=== PATIENT | male | born 1955 | race Caucasian/White ===

== ENCOUNTER 2018-01-28 13:57 | Emergency (ER) | payer OTHER ==
[~2018-01-28] VITALS: Ht 170.2 cm; Wt 110.9 kg
[~2018-01-28 13:57] MED LIST: AMLODIPINE; DOXYCYCLINE 10100 MG PO; ENDOCET 5-3251 EACH PO; FLEXERIL PO; LOTREL 10-20 M1 EACH PO; LOTREL 5-20 MG1 EACH PO; MEDROLDOSEPACK PO; NEURONTIN 300300 M1 PO; NORCO 7.5-3251 EACH PO; NORVASC5 MG PO; PROPRANOLOL 1010 MG PO; VALIUM5 MG PO; XANAX 0.5 MG0.5 M1 PO; ZANAFLEX4 M1 PO; ZANAFLEX4 MG PO
[2018-01-28] MEDS ORDERED: COMPAZINE10 MG PO (14:17)
[2018-01-28 14:43] LABS: ABSOLUTE LYMPHOCYTES 1.8 thou/uL (0.8-5.3); ABSOLUTE MONOCYTES 0.2 thou/uL (0.0-1.2); ABSOLUTE NEUTROPHILS 5.6 thou/uL (1.6-8.1); BASOPHILS 0.4 %; EOSINOPHILS 0.4 %; HEMATOCRIT 46.6 % (42.0-52.0); HEMOGLOBIN 15.5 gm/dL (14.0-18.0); LYMPHOCYTES 23.7 %; MCH 28.7 pg (26.0-34.0); MCHC 33.3 g/dL (28.0-37.0); MONOCYTES 2.6 %; MPV 8.9 fl. (7.2-11.1); NUCLEATED RBCS 0 /100WBC; PLATELET COUNT* 150 thou/uL (150-400); POLYS 72.9 %; RBC 5.42 mil/uL (4.50-6.00); RDW-CV 15.5 % (10.5-14.5); WBC 7.7 thou/uL (4.0-11.0)
[2018-01-28 14:51] LABS: APTT 28.2 Seconds (25.0-31.3); INR 1.2; PROTIME 11.4 Seconds (9.20-11.50)
[2018-01-28 15:23] LABS: ALBUMIN 3.9 g/dL (3.4-5.0); ALKALINE PHOSPHATASE 55 U/L (46-116); BUN 16 mg/dL (7-18); CALCIUM 9.2 mg/dL (8.5-10.1); CHLORIDE 102 mmol/L (98-107); CREATININE 0.8 mg/dL (0.6-1.3); GLUCOSE 166 mg/dL (70-99); NT-PRO BRAIN NAT PEPTIDE 252 pg/mL (<300); POTASSIUM 4.1 mmol/L (3.5-5.1); SGOT 22 U/L (15-37); SGPT 20 U/L (30-65); SODIUM 137 mmol/L (136-145); TOTAL BILIRUBIN 0.5 mg/dL (<0.1-1.0); TOTAL PROTEIN 7.8 g/dL (6.4-8.2)
[2018-01-28 15:41] LABS: ANION GAP 6 mmol/L (7-16); CO2 29 mmol/L (21-32); TROPONIN-I LEVEL <0.06 ng/mL (<0.06)
[2018-01-28 15:53] LABS: URINE BILIRUBIN NEGATIVE (Negative); URINE BLOOD NEGATIVE (Negative); URINE CLARITY CLEAR; URINE COLOR YELLOW; URINE GLUCOSE-RANDOM NEGATIVE (Negative); URINE KETONES NEGATIVE (Negative); URINE LEUKOCYTES-REFLEX NEGATIVE (Negative); URINE NITRITE-REFLEX NEGATIVE (Negative); URINE PROTEIN NEGATIVE (Negative); URINE UROBILINOGEN 0.2 E.U./dl (0.2-1.0)
--- NOTE | 2018-01-28 16:34 | EKG ---
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
[2018-01-28 17:47] VITALS: BP 157/102
== END 2018-01-28 17:57 | disposition home or self-care (01) ==
LOC: M.ERS 13:57
PROVIDERS: Family Medicine
DX: R53.1 Weakness (principal); C18.9 Malignant neoplasm of colon, unspecified; F41.0 Panic disorder [episodic paroxysmal anxiety]; F32.9 Major depressive disorder, single episode, unspecified; M19.90 Unspecified osteoarthritis, unspecified site; I10 Essential (primary) hypertension; E78.5 Hyperlipidemia, unspecified; G47.30 Sleep apnea, unspecified; Z90.89 Acquired absence of other organs; Z87.442 Personal history of urinary calculi; Z88.5 Allergy status to narcotic agent; Z88.8 Allergy status to other drugs, medicaments and biological substances; Z88.6 Allergy status to analgesic agent

== ENCOUNTER 2018-01-29 10:33 | Inpatient (IN) | payer OTHER ==
[~2018-01-29] VITALS: Ht 172.7 cm; Wt 103.0 kg
[~2018-01-29 10:33] MED LIST changes: +COMPAZINE10 MG PO
[2018-01-29 10:39] VITALS: BP 192/99
[2018-01-29 10:59] LABS: ABSOLUTE LYMPHOCYTES 1.6 thou/uL (0.8-5.3); ABSOLUTE MONOCYTES 0.2 thou/uL (0.0-1.2); ABSOLUTE NEUTROPHILS 6.2 thou/uL (1.6-8.1); BASOPHILS 0.5 %; EOSINOPHILS 0.2 %; HEMATOCRIT 44.5 % (42.0-52.0); HEMOGLOBIN 14.8 gm/dL (14.0-18.0); LYMPHOCYTES 20.1 %; MCH 28.7 pg (26.0-34.0); MCHC 33.3 g/dL (28.0-37.0); MCV 86.4 fL (80.0-100.0); NUCLEATED RBCS 0 /100WBC; PLATELET COUNT* 145 thou/uL (150-400); POLYS 77.2 %; RBC 5.16 mil/uL (4.50-6.00); RDW-CV 15.3 % (10.5-14.5); WBC 8.1 thou/uL (4.0-11.0)
[2018-01-29 11:07] LABS: CALCIUM 9.4 mg/dL (8.5-10.1); POTASSIUM 3.9 mmol/L (3.5-5.1)
[2018-01-29 11:08] LABS: INR 1.2; PROTIME 11.4 Seconds (9.20-11.50)
[2018-01-29 11:12] LABS: ALBUMIN 4.1 g/dL (3.4-5.0); TOTAL PROTEIN 8.1 g/dL (6.4-8.2)
[2018-01-29 13:35] VITALS: BP 172/64
[2018-01-29 13:40] VITALS: BP 162/83
--- NOTE | 2018-01-29 13:45 | NUR ---
PATIENT ADMITTED TO ROOM 104 VIA CART FROM ER. PATIENT ASSISTED TO BED FROM CART WITH MODERATE ASSIST. PATIENT A/O, BUT EXTEMELY DROWSY. PATIENT DENIES PAIN. ADMISSION HISTORY AND ASSESSMENT COMPLETED WITH ASSISTANCE FROM PATIENT'S DAUGHTER. IV FLUIDS INFUSING. REPEAT LACTIC ACID BEING DRAWN. BED ALARM ON FOR SAFETY. CALL LIGHT WITHIN REACH. WILL CONTINUE [facility] PLAN OF CARE.
[2018-01-29 14:32] VITALS: BP 159/82
[2018-01-29 16:37] VITALS: BP 152/71
--- NOTE | 2018-01-29 17:43 | NUR ---
PATIENT HAS BEEN MORE ALERT AND AWAKE THIS AFTERNOON, HAS DENIED PAIN. LACTIC ACID TRENDING DOWN AND NOW WNL. PATIENT'S RIGHT CHEST PORT A CATH ACCESSED THIS AFTERNOON WITHOUT ANY DIFFICUTLY, IV FLUIDS AND ZOSYN INFUSING. PATIENT WITH POOR APPETITE, TAKING JELLO WITHOUT DIFFICULTY. VOIDING PER URINAL. PATIENT'S FAMILY AT BEDSIDE THIS AFTERNOON. SPUTUM SAMPLE SENT. ID CONSULT NOTED. FALL PRECAUTIONS IN PLACE. HOURLY ROUNDING COMPLETED. CALL LIGHT WITHIN REACH. WILL CONTINUE WITH PLAN OF CARE.
[2018-01-29 20:00] VITALS: BP 173/86
[2018-01-30] VITALS (15 sets, daily range): BP systolic 117–200; BP diastolic 62–92
--- NOTE | 2018-01-30 01:13 | NUR ---
Assumed care of patient at 1930. He had been coughing and having emesis. IV zofran given at 1999, this didn't help his nausea and vomiting. He was also having some urine incontinence, secondary to the coughing and emesis. BP was elevated, he also had a slight elevation in temp, lungs were coarse. Daughter came to nurses station stating that the patient was still having emesis, Dr Rivera was notified and also that he had a slight temp, and high BP. Medications were not readily available so it took some time to give elevated BP med, additional nausea med. Then at the time that meds were given it was observed that the patient had frothy,blood tinged sputum and he was very weak and lungs were more coarse. Fluids were decreased. Dr Rivera was notified and orders were recieved. Patient was moved to ICU bed 2. Report given to Ingrid. Message left on patient's daughter's voicemail telling about move to ICU.
[2018-01-30 01:21] LABS: BE 5.2 mmol/L (-2 to +3); HCO3 28.5 mmol/L (22.0-26.0); PCO2 37.7 mmHg (35.0-45.0); pH 7.497 (7.340-7.450)
[2018-01-30 01:26] LABS: PO2 44.4 mmHg (75.0-100.0)
[2018-01-30 02:43] LABS: BE 5.5 mmol/L (-2 to +3); HCO3 28.3 mmol/L (22.0-26.0); PCO2 35.6 mmHg (35.0-45.0); pH 7.518 (7.340-7.450)
[2018-01-30 02:49] LABS: PO2 125.6 mmHg (75.0-100.0)
--- NOTE | 2018-01-30 05:06 | NUR ---
[facility]. PTS LUNGS AUDIBLY FLUID OVERLOADED. PT ASSISTED TO ROOM SUCTION ORALLY PT COUGHED AND WE WERE ABLE TO CLEAR A LARGE AMOUT OF SUCRTETIONS PT LUNGS LESS CONGESTED BUT STILL COURSE NEB TREATMENT GIVEN.PT CONTINUES ON 4L NC . PT NSR ON THE MONITOR AND VSS, DENIES ANY COMPLAINTS. WILL CONTINUE PLAN OF CARE.
[2018-01-30 05:29] LABS: HEMATOCRIT 43.2 % (42.0-52.0); HEMOGLOBIN 14.2 gm/dL (14.0-18.0); MCH 28.3 pg (26.0-34.0); MCHC 32.8 g/dL (28.0-37.0); MCV 86.2 fL (80.0-100.0); MPV 8.7 fl. (7.2-11.1); RBC 5.01 mil/uL (4.50-6.00); RDW-CV 15.3 % (10.5-14.5); WBC 12.6 thou/uL (4.0-11.0)
[2018-01-30 05:48] LABS: ALBUMIN 3.9 g/dL (3.4-5.0); ALKALINE PHOSPHATASE 43 U/L (46-116); ANION GAP 8 mmol/L (7-16); BUN 15 mg/dL (7-18); CALCIUM 8.4 mg/dL (8.5-10.1); CHLORIDE 107 mmol/L (98-107); CO2 29 mmol/L (21-32); CREATININE 1.1 mg/dL (0.6-1.3); GLUCOSE 189 mg/dL (70-99); MAGNESIUM 1.8 mg/dL (1.8-2.4); POTASSIUM 3.2 mmol/L (3.5-5.1); SGOT 27 U/L (15-37); SGPT 21 U/L (30-65); SODIUM 144 mmol/L (136-145); TOTAL BILIRUBIN 1.1 mg/dL (<0.1-1.0); TOTAL PROTEIN 7.2 g/dL (6.4-8.2); TROPONIN-I LEVEL <0.06 ng/mL (<0.06)
--- NOTE | 2018-01-30 08:24 | NUR ---
LEVOPHED GTT TITRATED OFF AT 0824
--- NOTE | 2018-01-30 09:35 | NUR ---
PRN HYDRALAZINE GIVEN FOR ELEVATED BLOOD PRESSURE, AFTER 30 MINUTES, PRESSURE REMAINS HIGH WITH SYSTOLIC OF 207. DR WORTHINGTON NOTIFIED. AWAITING ORDERS.
--- NOTE | 2018-01-30 09:54 | NUR ---
PATIENT NOT ALERT ENOUGH TO EAT BREAKFAST
--- NOTE | 2018-01-30 14:09 | EKG ---
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
[2018-01-30] MEDS ORDERED: LASIX 20 MG TAB20 MG PO (15:41)
[2018-01-30] MEDS ORDERED: KLOR-CON 1010 MEQ PO (15:41)
[2018-01-30 17:20] LABS: URINE BILIRUBIN NEGATIVE (Negative); URINE BLOOD 2+ (Negative); URINE CLARITY CLEAR; URINE COLOR YELLOW; URINE GLUCOSE-RANDOM NEGATIVE (Negative); URINE KETONES NEGATIVE (Negative); URINE LEUKOCYTES-REFLEX NEGATIVE (Negative); URINE NITRITE-REFLEX NEGATIVE (Negative); URINE PROTEIN 2+ (Negative); URINE SPECIFIC GRAVITY 1.015 (1.005-1.030); URINE UROBILINOGEN 0.2 E.U./dl (0.2-1.0)
[2018-01-30 17:36] LABS: MUCUS None Seen strn/LPF (None Seen); SQUAMOUS 0-3 Few /LPF (0-3)
[2018-01-30 17:39] LABS: CASTS None Seen /LPF (None Seen); CRYSTALS None Seen /LPF (None Seen); URINE WBC-REFLEX 0-5 Rare /HPF (0-5)
[2018-01-30 17:40] LABS: BACTERIA-REFLEX 1-9 Few /HPF (None Seen)
[2018-01-30 17:43] LABS: AMP/METHAMP Negative (Negative); BARBITURATES Negative (Negative); BENZODIAZEPINES POSITIVE (Negative); COCAINE Negative (Negative); METHADONE Negative (Negative); OPIATES POSITIVE (Negative); PCP Negative (Negative); THC POSITIVE (Negative)
--- NOTE | 2018-01-30 18:29 | NUR ---
PATIENT SOMEWHAT PROGRESSING TOWARDS GOALS. REMAINS AT BASELINE COGNITION, ORIENTED TO PERSON. ORIENTED TO TIME AND PLACE INTERMITTENTLY. TRACING NSR ON BUTCHER SCULLION. CURRENTLY ON 2L NC, SAT 94% ON MONITOR. REMAINS COARSE WITH COPIOUS SECRETIONS. NPO AT THIS TIME FOR ASPIRATION CONCERNS. ST EVALUATION AND TREATMENT ORDERED PER DR WORTHINGTON. IMPULSIVE AT TIMES, BED ALARM SET OFF X2, PULLING AT LINES. PHYSICIAN BUYER TOBACCO HEAD PAGED, ORDERS FOR SITTER. DAUGHTER PRESENT FOR DAYSHIFT TODAY, BUT SITTER NEEDED TONIGHT. DELIVERY MGR NOTIFIED. CT ABDOMEN COMPLETED TODAY, RESULTS SENT TO DR WORTHINGTON. STARTED ON IV PANTOPRAZOLE.
--- NOTE | 2018-01-30 20:24 | NUR ---
PATIENT TRANSFERED TO ROOM 232 AT 1755.
[2018-01-31] VITALS: BP 159/79
[2018-01-31 04:00] VITALS: BP 171/84
[2018-01-31 05:23] LABS: ABSOLUTE LYMPHOCYTES 2.6 thou/uL (0.8-5.3); ABSOLUTE MONOCYTES 0.4 thou/uL (0.0-1.2); ABSOLUTE NEUTROPHILS 8.2 thou/uL (1.6-8.1); BASOPHILS 0.3 %; EOSINOPHILS 0.1 %; HEMATOCRIT 41.1 % (42.0-52.0); HEMOGLOBIN 13.4 gm/dL (14.0-18.0); LYMPHOCYTES 23.1 %; MCH 28.8 pg (26.0-34.0); MCHC 32.6 g/dL (28.0-37.0); MCV 88.3 fL (80.0-100.0); MONOCYTES 3.8 %; MPV 9.4 fl. (7.2-11.1); NUCLEATED RBCS 0 /100WBC; PLATELET COUNT* 113 thou/uL (150-400); POLYS 72.7 %; RBC 4.66 mil/uL (4.50-6.00); RDW-CV 15.5 % (10.5-14.5); WBC 11.3 thou/uL (4.0-11.0)
[2018-01-31 05:52] LABS: ALBUMIN 3.4 g/dL (3.4-5.0); CALCIUM 8.5 mg/dL (8.5-10.1); CREATININE 0.9 mg/dL (0.6-1.3); MAGNESIUM 1.9 mg/dL (1.8-2.4); POTASSIUM 3.6 mmol/L (3.5-5.1); TOTAL BILIRUBIN 0.7 mg/dL (<0.1-1.0); TOTAL PROTEIN 6.4 g/dL (6.4-8.2)
[2018-01-31 07:45] VITALS: BP 171/81
--- NOTE | 2018-01-31 07:56 | NUR ---
Transferred from ICU at 2020 last evening. Loading Machine Operator said he was cleared to be on med-surg floor as long as he had a sitter and had on continuous pulse ox. He has had one on one sitter and continuous pulse ox. She has coarse lungs, he has a cough and sounds gurgly in his throat. Suction done with [place] as needed. He does get restless and confused and has been seeing things at times. He did get upset with his sitter and said she was lying. He did try to get out of bed. He continues to have hiccups but they do improve with compazine and also ativan. He has been repositioned in the bed. He has slept well.
[2018-01-31 12:00] VITALS: BP 168/82
--- NOTE | 2018-01-31 15:48 | NUR ---
I have reviewed the documentation by ROSA ANDERSON from TODAY to 01/31/18 and I concur with it. BENJAMIN CLARK
[2018-01-31 16:46] VITALS: BP 186/87
--- NOTE | 2018-01-31 18:21 | NUR ---
ALERT AND ORIENTED X4 AT TIMES, BUT ALSO CONFUSED AND HALLUCINATING AT TIMES. SITTER AT THE BEDSIDE THROUGHOUT SHIFT. PORT A CATH IS PATENT AND INFUSING. RIGHT PERIPHERAL IV IS PATENT AND INFUSING ANTIBIOTICS AT THIS TIME. BLOOD PRESSURE HAS BEEN RUNNING HIGH THIS SHIFT, IV BLOOD PRESSURE MEDICATION GIVEN. CALL LIGHT IS WITHIN REACH. CALL LIGHT IS WITHIN REACH. NURSING WILL CONTINUE TO MONITOR.
[2018-02-01] VITALS: BP 167/83
[2018-02-01 04:00] VITALS: BP 181/86
[2018-02-01 06:11] LABS: HEMATOCRIT 40.1 % (42.0-52.0); HEMOGLOBIN 13.2 gm/dL (14.0-18.0); MCH 28.8 pg (26.0-34.0); MCHC 32.8 g/dL (28.0-37.0); MCV 87.8 fL (80.0-100.0); MPV 8.9 fl. (7.2-11.1); RBC 4.57 mil/uL (4.50-6.00); RDW-CV 15.2 % (10.5-14.5)
[2018-02-01 06:38] LABS: ALBUMIN 3.1 g/dL (3.4-5.0); CALCIUM 8.1 mg/dL (8.5-10.1); CREATININE 0.9 mg/dL (0.6-1.3); MAGNESIUM 2.1 mg/dL (1.8-2.4); POTASSIUM 3.5 mmol/L (3.5-5.1); TOTAL BILIRUBIN 0.5 mg/dL (<0.1-1.0); TOTAL PROTEIN 6.5 g/dL (6.4-8.2)
--- NOTE | 2018-02-01 07:54 | NUR ---
PATIENT REMAINS MAINLY CONFUSED THROUGHOUT SHIFT. VITAL SIGNS STABLE ON ROOM AIR. IV PATENT IN THE LEFT HAND AND PORTACATH IN THE RIGHT CHEST PATENT AND INFUSING PER ORDERS. PATIENT BECAME COMBATIVE EARLY THIS AM. PHYSICIAN WAS CONTACTED AND ORDERS RECIEVED. DENIED PAIN OR NAUSEA. REPOSITIONING SELF AND DECLINED STAFF TO ASSIST. RESTLESS FOR MOST OF THE NIGHT. MAINTAINED NPO STATUS. HOURLY ROUNDING COMPLETE. BED ALARM IN PLACE. ONE TO ONE OBSERVATION THROUGHOUT NIGHT. CALL LIGHT WITHIN REACH. NURSING WILL CONTINUE TO MONITOR.
[2018-02-01 08:00] VITALS: BP 185/87
[2018-02-01 08:22] LABS: BE -0.9 mmol/L (-2 to +3); HCO3 22.2 mmol/L (22.0-26.0); PCO2 32.5 mmHg (35.0-45.0); PO2 76.5 mmHg (75.0-100.0); pH 7.453 (7.340-7.450)
--- NOTE | 2018-02-01 09:57 | NUR ---
DESHAUN WILLIS REVIEWED AND AGREES WITH STUDENTS CHARTING.
--- NOTE | 2018-02-01 15:00 | NUR ---
PT.LESS CONFUSED TODAY,PER NURSING. UNABLE TO SEE,HOWEVER, HE IS OFF THE FLOOR FOR PROCEDURE. WILL SEE IN AM.
--- NOTE | 2018-02-01 18:51 | NUR ---
ALERT AND ORIENTED X4 AT TIMES AND VERY DROWZY AND CONFUSED AT TIMES. UP WITH ASSIST X1-2 IN ROOM. CENTRAL LINE IS PATENT AND INFUSING. PERIPHERAL LINE IS PATENT AND INFUSING ANTIBIOTIC AT THIS TIME. SITTER AT THE BEDSIDE THROUGHOUT SHIFT. CURRENTLY NPO AND RECEIVING IV NUTRITION. VSS ON ROOM AIR. HOURLY ROUNDS HAVE BEEN MAINTAINED THROUGHOUT SHIFT. CALL LIGHT IS WITHIN REACH. NURSING WILL CONTINUE TO MONTIOR.
[2018-02-02] VITALS: BP 147/73
[2018-02-02 04:39] VITALS: BP 170/82
--- NOTE | 2018-02-02 05:54 | NUR ---
PT SLEPT GOOD THROUGH THE NIGHT. ASSESSMENT COMPLETE. SITTER AT BEDSIDE. PT IS FALL RISK, BED ALARM ON. NPO AT THIS TIME FOR SPEECH EVAL. PT HAS IV FLUIDS INFUSING. PT DENIES PAIN. NOHEMI SATS ON ROOM AIR. PT IS UP STANDBY ASSIST. GERARDO IN PLACE. SEE ASSESSMENT AND VITALS FOR OTHER DETAILS. CALL LIGHT WITHIN REACH, WILL CONTINUE PLAN OF CARE
[2018-02-02 08:17] VITALS: BP 141/73
--- NOTE | 2018-02-02 10:38 | NUR ---
ASSUMED CARES OF PT AT 0700. PT IN BED ASLEEP/SNORING. BED IN LOW LOCKED POSITION, CALL BUTTON AND PERSONAL ITEMS IN PT REACH. PT HAS 1/ SITTER FOR AGITATION/CONFUSION/DIFFICULT TO AROUSE. PT A&O X3 THIS MORNING ROUNDS, HRRR PER AUSCULTATION, VSS ON RA, AFEBRILE, NO PAIN REPORTED. GERARDO PATENT WITH CLEAR YELLOW URINE VISIBLE. NO HICCUPS THIS MORNING ROUNDS. PT UP WITH MOD ASSIST WITH OCCUPATIONAL THERAPY. LEFT HAND IV PATENT WITH FLUIDS INFUSING/ABT. RIGHT POWER PORT ACCESSED WITH PROCALAMINE INFUSING. PT PRESENTLY NPO FOR SPEECH EVALUATION FOR POSSIBLE ASPIRATION RISKS. PT COOPERATIVE THIS MORNING ACTIVITIES, OFTEN DROWSY AND HEAVY SLEEPING WITH SNORING. HOURLY ROUNDING CONTINUES, WILL CONTINUE TO MONITOR PT STATUS AND PROGRESS.
--- NOTE | 2018-02-02 13:29 | CON ---
[address] [address] CONSULTATION Name: ANN-MARIE CHANEY Room: [address] IN M.R.#: [id number] Admission: 01/29/18 Attend Phys: Kendall Rivera, Discharge: Date of : 55 Report #: [id number] THIS REPORT FOR: //name// CC: Michele Emeterio Kendall Rivera DATE OF SERVICE: 01/30/2018 INFECTIOUS DISEASE CONSULTATION ATTENDING PHYSICIAN: Kendall Rivera MD REASON FOR CONSULTATION: Fever, altered mental status. HISTORY OF PRESENT ILLNESS: A 62-year-old white man initially evaluated at [facility] on January 28, the patient is advised admission, he turns this down. Returns to the Emergency Room the next day and he is admitted. He is admitted to the Orthopedic floor initially and subsequently transferred to the ICU with altered mental status, hiccupping. The patient appears to be able to follow simple commands, but unable to give any information. He appears to be encephalopathic. The patient apparently is receiving chemotherapy at [facility] for colon cancer. He has a Port-A-Cath for this. All this information is gathered from the review of records. The patient unable to give me any information. PAST MEDICAL AND SURGICAL HISTORY: Knee operations in 1970s, vasectomy and vasectomy reversal, anxiety attacks and depression, back problems, tonsillectomy, right knee surgery for saw accident, kidney stones, recently diagnosed to have colon cancer and apparently have had segmental colon resection. DRUG ALLERGIES: CODEINE, BENADRYL, FLUOXETINE, NAPROXEN. MEDICATIONS: The patient is currently on treatment with Levaquin 750 mg IV daily, Zosyn 3.375 grams IV every 8 hours and vancomycin 1 gram IV single dose. He is also receiving hydralazine 10 mg IV p.r.n., sodium chloride 50 mL infusions q. 6 hours, p.r.n. ondansetron, p.r.n. acetaminophen. SOCIAL HISTORY: Unable to obtain. See [facility]. FAMILY HISTORY: Unable to obtain. See [facility] records. REVIEW OF SYSTEMS: Unable to obtain. PHYSICAL EXAMINATION: GENERAL: Well-developed man continuously hiccupping with eyes closed, [place] [address] CONSULTATION Name: ANN-MARIE CHANEY Darius Room: [address]#: [id number] Admission: 01/29/18 Attend Phys: Kendall Rivera, Discharge: Date of : 55 Report #: [id number] to follow commands. VITAL SIGNS: Temperature maximum since admission at 100.1, pulse 85-139, respirations 16-20, BP 173/86. HEENMT: Head normocephalic, atraumatic. Pupils equal and reactive. Conjunctivae normal. Mouth edentulous on the maxilla, few incisors on the jaw. NECK: Supple, no thyromegaly. LUNGS: Actually clear to auscultation though he appears to have problems handle upper airway secretions. HEART: S1, S2. No gallop or murmur. CHEST: Revealed right-sided infraclavicular Port-A-Cath. ABDOMEN: Revealed recent infraumbilical laparotomy scar, well healed. The abdomen is soft, no masses or megaly. GENITALIA: Pulido catheter in place. RECTAL EXAMINATION: Deferred. EXTREMITIES: No clubbing or cyanosis. NEUROLOGIC: The patient is encephalopathic, appears to have normal cranial nerves and motor exam. LABORATORY DATA: Sodium 139, potassium 3.9, BUN 15, creatinine 1, glucose 178, albumin 3.9, 4.1. Lactic acid normal. Protime normal. WBC on the date of admission 8100, hemoglobin 14.8 g/dL, platelets 145,000 with white blood cell count differential reveals 77% segmented neutrophils. Urinalysis on January 28 normal. ABGs on January 30, pH 7.49, pCO2 of 37, pO2 of 44, bicarbonate 28.5, this is on 2 liters oxygen nasal cannula. A repeat set of gases later on revealed pH 7.51, pCO2 of 35, pO2 of 125, bicarbonate 28.3, O2 saturation 97%, these set of gases on 6 liters oxygen nasal cannula. MICROBIOLOGY DATA: That has included blood cultures obtained on January 28 and January 29 all pending and negative. RADIOLOGY EVALUATION: On January 28, CT scan of the brain revealed moderate cerebral atrophy, no acute intracranial process, no metastases. CT chest PE protocol negative for pulmonary embolism, clear lungs. Chest x-ray on the , official report pending. The chest x-ray revealed some cardiomegaly and what appears to be left pleural effusion. ASSESSMENT: 1. Question left lower lobe pneumonia with pleural effusion. 2. Hypoxemia. 3. Low grade fever. 4. History of recent colon cancer, on chemotherapy (unknown agents). 5. Hypertension. SUGGESTIONS: Recommend treating the patient as for possible healthcare-associated pneumonia -- aspiration pneumonia with combination of Levaquin, Zosyn and vancomycin. We will add vancomycin [place] [address] CONSULTATION Name: RITUANN-MARIE Room: [address] [facility] IN M.R.#: [id number] Admission: 01/29/18 Attend Phys: Kendall Rivera, Discharge: Date of : 55 Report #: [id number] Rivera, thank you for requesting my suggestions. <ELECTRONICALLY SIGNED> By: Marco Uriarte MD 02/02/18 1329 0428 [id number] Uriarte MD /nt
[2018-02-02 17:30] VITALS: BP 162/91
--- NOTE | 2018-02-02 19:53 | NUR ---
REPORT TO SIGNAL WIRER FOR CONTINUED CARES. PT IN BED SNORING WITH ONE ON ONE SITTER. VS REMAIN STABLE, FLUIDS CONTINUE TO INFUSE, SEE MAR. ABT THERAPY DELAYED R/T OFF UNIT FOR PROCEDURE AND TRYING TO GET CAUGHT UP ON FLUIDS ONCE PT RETURNED TO FLOOR. HOURLY ROUNDING COMPLETED.
--- NOTE | 2018-02-02 19:58 | NUR ---
PT BECAME AGITATED AND ANGRY AND REFUSED TO ALLOW DR. AMIN TO PERFORM LUMBAR PUNCTURE. PT THREATENED TO FIGHT TOOTH AND NAIL TO NOT LET ANYONE COME ANYWHERE NEAR HIM WITH A NEEDLE TO HIS BACK. DAUGHTER AT SIDE TRYING TO CONVINCE PT TO GO THROUGH WITH PROCEDURE. PT REMAINED ANGRY AND AGITATED. CALL OUT TO DR. WHATLEY WHO WANTED TO CONTACT DR. ELLIS. PT HAD BEEN TRANSPORTED BACK TO ROOM BY THIS TIME AND REMAINED AGITATED AND AGAINST NEEDLES BEING PLACED IN HIS BACK.
[2018-02-02 23:53] VITALS: BP 159/96
[2018-02-03 06:32] LABS: HEMATOCRIT 41.7 % (42.0-52.0); HEMOGLOBIN 13.9 gm/dL (14.0-18.0); MCHC 33.2 g/dL (28.0-37.0); MCV 87.5 fL (80.0-100.0); MPV 8.4 fl. (7.2-11.1); RBC 4.77 mil/uL (4.50-6.00); RDW-CV 15.8 % (10.5-14.5); WBC 7.5 thou/uL (4.0-11.0)
--- NOTE | 2018-02-03 06:43 | NUR ---
PATIENT SLEPT PART OF THE NIGHT. TPN WAS STARTED AT 40 ML/HR. IV ANTIBIOTICS WERE GIVEN ORDERED. GERARDO REMAINS TO DEPENDENT DRAIN. PATIENT WAS GIVEN ZOFRAN ONCE FOR NAUSEA AND HICCUPS WITH GOOD RELIEF. PATIENT REMAINS 1:1 SITTER BUT HAS REMAINED CALM AND PLEASANT THIS SHIFT. WILL CONTINUE TO MONITOR.
[2018-02-03 06:48] LABS: CALCIUM 8.1 mg/dL (8.5-10.1); CREATININE 0.8 mg/dL (0.6-1.3); MAGNESIUM 2.2 mg/dL (1.8-2.4); PHOSPHORUS* 3.5 mg/dL (2.5-4.9); POTASSIUM 3.8 mmol/L (3.5-5.1); TOTAL BILIRUBIN 0.6 mg/dL (<0.1-1.0); TOTAL PROTEIN 6.1 g/dL (6.4-8.2)
[2018-02-03 10:00] VITALS: BP 154/88
[2018-02-03 11:31] LABS: CSF CLARITY CLEAR; CSF COLOR COLORLESS; CSF RBC 2 /mm3; CSF WBC 0 /mm3 (0-10); VOLUME 20 ml
[2018-02-03 11:32] LABS: CSF GLUCOSE 77 mg/dl (40-70)
[2018-02-03 16:00] VITALS: BP 135/93
--- NOTE | 2018-02-03 16:11 | NUR ---
PT.NAPPING,AROUSES EASILY. HAS FLAT AFFECT. HE TALKS ABOUT CARS FREQUENTLY. 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 HE SAID HE LIVES ALONE. HE RENTS HIS BOTTOM PART OF HIS HOUSE OUT TO A FRIEND,FRANCISCA. HE CAN HELP HIM AT DISCHARGE. UNSURE IF PT.ANSWERING QUESTIONS APPROPRIATELY. WILL CONFIRM WITH FAMILY. HE SAID HE HAD A HEAD ON ACCIDENT WITH TBI ON . HE SAID GEORGETTE WAS HIS DAUGHTER. SHE LIVES A COUPLE OF BLOCKS AWAY. HIS NEXT DOOR NEIGHBOR IS MELBA. HE GIVES HIM RIDES. HAD LP TODAY. TOLD HIM IT LOOKED GOOD,PER PT. SISTER IN LAW,LUCY IN TO VISIT. WILL CALL HIS DAUGHTER,GEORGETTE TO VERIFY ABOVE INFORMATION.
--- NOTE | 2018-02-03 17:38 | NUR ---
PATIENT HAS BEEN VERY ALERT MOST OF THE DAY TODAY, CONFUSED AT TIMES. UP IN THE CHAIR MOST OF THE AFTERNOON, HAS TOLERATED REGULAR DIET FOR DINNER WITH NO COMPLAINTS SO FAR. SOME COMPLAINTS OF PAIN AFTER LUMBAR PUNCTURE THIS MORNING, CONTROLLED WITH TYLENOL. HAS HAD VISITORS THIS AFTERNOON. TWO IV'S STARTED TODAY FOR ANTIBIOTICS. CALL LIGHT IS IN REACH, CHAIR ALARM IS IN PLACE, WILL CONTINUE TO MONITOR.
[2018-02-03 20:15] VITALS: BP 154/104
[2018-02-03 23:50] VITALS: BP 151/84
[2018-02-04 04:00] VITALS: BP 147/91
--- NOTE | 2018-02-04 05:56 | NUR ---
PATIENT REMAINS ORIENTED TO SELF AND TIME. CONFUSED AND FORGETFUL AT TIMES. REMAINS UNDER ONE ON ONE OBSERVATION. BLOOD PRESSURE HAS BEEN ELEVATED SLIGHTLY BUT PATIENT HAS DECLINED ALL PRN AND SCHEDULED BLOOD PRESSURE MEDICATIONS WELL OTHER ORDERED MEDICATIONS SEVERAL TIMES. TWO IV'S PATENT IN THE LEFT FOREARM SALINE LOCKED. PORTACATH ACCESSED AND RUNNING TPN ORDERED. ACCU CHECKS COMPLETE AND CHARTED. PATIENT HAS BEEN DROWSY THIS AM. TOLERATING DIET THROUGOUT SHIFT. REPOSITIONING SELF IN BED. HOURLY ROUNDING COMPLETE. CALL LIGHT WITHIN REACH. BED ALARM IN PLACE. NURSING WILL CONTINUE TO MONITOR.
[2018-02-04 06:38] LABS: POTASSIUM 3.6 mmol/L (3.5-5.1)
[2018-02-04 08:00] VITALS: BP 152/90
[2018-02-04 16:00] VITALS: BP 171/114
--- NOTE | 2018-02-04 17:29 | NUR ---
SPOKE WITH PT.AND DAUGHTER GEORGETTE, IN ROOM, BRIEFLY, PT.WAS GOING FOR A TEST. GEORGETTE LEFT WHEN PT WENT TO RADIOLOGY. UNSURE OF DC DATE. PT.STILL ON TPN. WAS ABLE TO EAT AOBUT 50% OF LUNCH. WILL NEED HOME HEALTH AT DISCHARGE AND CLOSE FAMILY SUPERVISION DUE TO COGNITION.
[2018-02-04 20:30] VITALS: BP 160/88
[2018-02-04 23:49] VITALS: BP 164/90
[2018-02-05 03:30] VITALS: BP 150/86
[2018-02-05 04:52] LABS: POTASSIUM 3.6 mmol/L (3.5-5.1)
--- NOTE | 2018-02-05 06:09 | NUR ---
ALERT AND ORIENTED TO PERSON AND PLACE. CONFUSED AND FORGETFUL AT TIMES. BARRIUM SWALLOW RESULTS CALLED TO . CONTINUES TO HAVE FINE RASH ON TORSO, DR AWARE. PATIENT STATED PO PAIN MEDICATION WAS HELPFUL FOR GENERALIZED BODY PAIN. NO C/O N/V. GERARDO CATHETER PATENT WITH CLEAR YELLOW URINE. REMAINS ON NECTAR THICKEN LIQUIDS. HAS PATENT VALENTINO CATHETER. BLOOD PRESSURE HAS BEEN HIGH BUT HAS BEEN BETTER THIS SHIFT. HAS REFUSED IV BLOOD PRESSURE MEDICATION. CALL LIGHT WTIHIN REACH.
[2018-02-05 08:00] VITALS: BP 141/100
[2018-02-05 16:00] VITALS: BP 111/70
--- NOTE | 2018-02-05 18:07 | NUR ---
ALERT AND ORIENTED X4. FORGETFUL AT TIMES. UP WITH ASSIST X1 WITH WALKER AND GAIT BELT. PORTACATH IN RIGHT CHEST IS PATENT AND SALINE LOCKED AT THIS TIME. LEFT FOREARM IV X2 DC'D THIS AFTERNOON. ADVANCED TO THIN LIQUIDS TODAY PER SPEECH THERAPY. WALKED IN HALLWAYS WITH THERAPY AND NURSING THIS SHIFT. TOLERATING REGULAR DIET AND THIN LIQUIDS. ASPIRATION PRECAUTIONS MAINTAINED. VSS ON ROOM AIR. HOURLY ROUNDS HAVE BEEN MAINTAINED THROUGHOUT SHIFT. CALL LIGHT IS WITHIN REACH. NURSING WILL CONTINUE TO MONITOR.
[2018-02-05 20:30] VITALS: BP 142/84
--- NOTE | 2018-02-06 05:02 | NUR ---
PT HAD CONFUSION LAST NIGHT AND WAKING FROM A NAP, WANTED TO LEAVE AND CONFUSED ABOUT LOCATION/SITUATION, AFTER AWHILE PT WAS ORIENTED, PT GOT UP AROUND ROOM AND OUT TO LEMUS WITH STAFF AND CANE WITH STANDBY ASSISTANCE. PT HAD PAIN MED AND VALIUM LAST NIGHT. BED AND CHAIR ALARMS IN PLACE. PT WAS THEN PLEASANT THE REST OF THE NIGHT. PORT A CATH SALINE LOCKED, CALL LIGHT IN REACH, BED ALARM ON FOR SAFETY, WILL CONTINUE TO MONITOR
[2018-02-06 07:55] VITALS: BP 136/88
[2018-02-06] MEDS ORDERED: PROTONIX40 M1 PO (09:13)
[2018-02-06 12:04] VITALS: BP 136/88
--- NOTE | 2018-02-06 13:49 | NUR ---
PATIENT A&OX4, ROOM AIR, RIGHT CHEST PORTICATH, DEACCESSED AND HEPARIN LOCKED. UP STAND BY, STEADY GAIT. NO C/O PAIN/N/V. PATIENT DISCHARGED TODAY, REVIEWED PAPERWORK, VERBALIZES UNDERSTANDING. ALL CONCERNS AND QUESTIONS ANSWERED. WENT OVER DISCHARGED PAPERWORK WITH FAMILY MEMBER. NO OTHER CONCERNS AT THIS TIME. PATIENT LEFT UNIT AT 1348 VIA W/C WITH NURSING STAFF AND FAMILY MEMBER. ALL BELONGIGNS TAKEN WITH PATIENT, NOTHING LEFT BEHIND. APPROPRAITE AND COOPORATIVE WITH CARE.
[2018-02-08 09:09] LABS: CSF VDRL Non Reactive (Non Rea:<1:1)
--- NOTE | 2018-02-08 16:59 | CON ---
[address] [address] CONSULTATION Name: ANN-MARIE CHANEY Room: [address] IN M.R.#: [id number] Admission: 01/29/18 Attend Phys: Kendall Rivera, Discharge: 02/06/18 Date of : 55 Report #: [id number] THIS REPORT FOR: //name// CC: Michele Rivera DATE OF SERVICE: 01/31/2018 ADDENDUM I have personally seen and examined the patient and reviewed labs and imaging. The patient with history of recurrent colon cancer who is on chemotherapy. He has mental status changes, pneumonia and dysphagia. CT of abdomen revealed thickened distal esophagus. The patient also has persistent hiccups. We will consider EGD once his mental status back to baseline. Meanwhile, we will recommend medication to help with the hiccups. We will continue to monitor the patient as we follow up with his records from the past. <ELECTRONICALLY SIGNED> By: Mckayla Alfredo MD 02/08/18 1659 1522 2005Mckayla Alfredo MD /nt
--- NOTE | 2018-02-08 16:59 | CON ---
[address] [address] CONSULTATION Name: ANN-MARIE CHANEY Room: [address] IN .R.#: [id number] Admission: 01/29/18 Attend Phys: Kendall Rivera, Discharge: 02/06/18 Date of : 55 Report #: [id number] THIS REPORT FOR: //name// CC: Michele Rivera DICTATED BY: Mansi ROTH DATE OF SERVICE: 01/31/2018 Please note at the time of this dictation, the patient was seen and physically examined by myself. REASON FOR CONSULTATION: Dysphagia. HISTORY OF PRESENT ILLNESS: This 62-year-old male presented to the Emergency Room with worsening of weakness and fatigue, which has been onset for the last 2 weeks. He also was having some nausea and vomiting that was noted yesterday and he really has not been eating or drinking much of anything. He states he had been taking some antinausea medicine without any relief. He does state that for the last 2 weeks, he has had difficulty in swallowing, mainly with solids and what I can get from him. He states he has had upper and lower scopes done here within the last year when his colon cancer reappeared. We will attempt to get those records from recent endoscopy studies. The patient thinks it was done at [facility]. He states his weight has been fairly stable. His bowels move daily. He does not have any abdominal pain that he is complaining of. Currently, the patient did answer most of my questions appropriately, but to place and time, he was confused. Most of his questions that were asked were from his remote past. ALLERGIES: CODEINE, NAPROXEN, FLUOXETINE AND DIPHENHYDRAMINE. MEDICATIONS: From home include Zanaflex, Endocet, Valium, Lotrel, Inderal, Neurontin, and Compazine. PAST MEDICAL HISTORY: Anxiety, panic attacks, depression, arthritis, hypertension, hyperlipidemia, sleep apnea, history of colon cancer. PAST SURGICAL HISTORY: Knee operations, vasectomy, left ankle fracture, left knee arthroscopic surgery, right knee surgery and colon resection. He does have a history of sleep apnea and uses BiPAP at night. FAMILY HISTORY: Noncontributory. SOCIAL HISTORY: [place] [address] CONSULTATION Name: ANN-MARIE CHANEY Room: [address]#: [id number] Admission: 01/29/18 Attend Phys: Kendall Rivera, Discharge: 02/06/18 Date of : 55 Report #: [id number] REVIEW OF SYSTEMS: Twelve-point review of systems is essentially negative except what is mentioned in the HPI. PHYSICAL EXAMINATION: VITAL SIGNS: Temperature 36.8, pulse 66, respirations 16, blood pressure 171/81. HEART: Regular rate and rhythm. LUNGS: Diminished, but clear. ABDOMEN: Soft, positive bowel sounds in all 4 quadrants with no masses or tenderness noted. NEUROLOGIC: The patient was able to answer questions appropriately most of the time. His place and timing was somewhat off. He kept his eyes closed throughout the entire conversation and has significant hiccups that were noted. LABORATORY DATA: Hemoglobin 13.4, hematocrit 41.1, white count is 11.3, platelets 113. Sodium 145, potassium 3.6, chloride 111, CO2 27, BUN is 17, creatinine 0.9, GFR is 86, glucose is 135. CT of the abdomen and pelvis showed thickening of the distal esophagus as well as a history showing fatty liver. IMPRESSION: 1. Dysphagia. 2. CT abnormal thickening of the distal esophagus. 3. Hiccups last 2 days. 4. History of colon cancer in 2012 with reoccurrence and currently on chemo last treatment 1 week ago. 5. Thrombocytopenia, likely related to chemo. 6. Pneumo. 7. Mental status changes. PLAN: 1. Consider a barium swallow once his hiccups have improved. 2. Could consider Thorazine, but until his mental status improves, do not want to worsen that effect. 3. He will need an EGD prior to discharge. 4. Obtain records from [facility] along with path. Thank you for allowing us to participate in this patient's care. Please do not hesitate to call with any questions in regard to this consult. ADDENDUM I have personally seen and examined the patient and reviewed labs and imaging. The patient with history of recurrent colon cancer who is on chemotherapy. He has mental status changes, pneumonia and dysphagia. CT of abdomen revealed thickened distal esophagus. The patient also has persistent hiccups. We will [address] [address] CONSULTATION Name: ANN-MARIE CHANEY Room: [address] [place] ..#: [id number] Admission: 01/29/18 Attend Phys: Kendall Rivera, Discharge: 02/06/18 Date of : 55 Report #: [id number] consider EGD once his mental status back to baseline. Meanwhile, we will recommend medication to help with the hiccups. We will continue to monitor the patient as we follow up with his records from the past. <ELECTRONICALLY SIGNED> By: Mckayla Alfredo MD 02/08/18 1659 1318 1622Mckayla Alfredo MD /nt
== END 2018-02-06 13:48 | disposition home or self-care (01) | DRG 177 ==
LOC: M.ERS 10:33 → M.TBA-ER 12:26 → M.ORTHSURG 12:26 → M.ICU 01-30 00:26 → M.ORTHSURG 01-30 20:40
PROVIDERS: Emergency Medicine Emergency Medical Services; Internal Medicine; Specialist; ADMIT Family Medicine
DX: J69.0 Pneumonitis due to inhalation of food and vomit (principal); J96.01 Acute respiratory failure with hypoxia; G92 Toxic encephalopathy; E87.2 Acidosis; F41.9 Anxiety disorder, unspecified; F12.10 Cannabis abuse, uncomplicated; D69.6 Thrombocytopenia, unspecified; E87.6 Hypokalemia; F32.9 Major depressive disorder, single episode, unspecified; K21.0 Gastro-esophageal reflux disease with esophagitis; M19.90 Unspecified osteoarthritis, unspecified site; T40.695A Adverse effect of other narcotics, initial encounter; E78.5 Hyperlipidemia, unspecified; G47.33 Obstructive sleep apnea (adult) (pediatric); I10 Essential (primary) hypertension; L27.1 Localized skin eruption due to drugs and medicaments taken internally; T36.95XA Adverse effect of unspecified systemic antibiotic, initial encounter; Y92.89 Other specified places as the place of occurrence of the external cause; Z88.6 Allergy status to analgesic agent; Z85.038 Personal history of other malignant neoplasm of large intestine; Z88.8 Allergy status to other drugs, medicaments and biological substances; Z98.52 Vasectomy status; Z87.442 Personal history of urinary calculi; Z87.891 Personal history of nicotine dependence; Z80.8 Family history of malignant neoplasm of other organs or systems

== ENCOUNTER → 2018-02-22 | Outpatient (CLI) | payer OTHER ==
[~2018-02-22] MED LIST changes: +KLOR-CON 1010 MEQ PO; +LASIX 20 MG TAB20 MG PO; +PROTONIX40 M1 PO
== END ==
LOC: M.RAD 15:59
DX: S92.412A Displaced fracture of proximal phalanx of left great toe, initial encounter for closed fracture (principal); X58.XXXA Exposure to other specified factors, initial encounter; Y93.89 Activity, other specified; Y92.89 Other specified places as the place of occurrence of the external cause; Y99.8 Other external cause status

== ENCOUNTER 2018-05-16 05:18 | Emergency (ER) | payer OTHER ==
[~2018-05-16] VITALS: Ht 170.2 cm; Wt 102.1 kg
[2018-05-16 06:42] LABS: HEMATOCRIT 48.8 % (42.0-52.0); HEMOGLOBIN 16.4 gm/dL (14.0-18.0); MCH 29.4 pg (26.0-34.0); MCHC 33.6 g/dL (28.0-37.0); MCV 87.6 fL (80.0-100.0); MPV 9.2 fl. (7.2-11.1); RBC 5.57 mil/uL (4.50-6.00); RDW-CV 13.7 % (10.5-14.5); WBC 10.2 thou/uL (4.0-11.0)
[2018-05-16 06:47] LABS: ANION GAP 12 mmol/L (7-16); BUN 19 mg/dL (7-18); CALCIUM 9.2 mg/dL (8.5-10.1); CHLORIDE 100 mmol/L (98-107); CO2 24 mmol/L (21-32); CREATININE 0.9 mg/dL (0.6-1.3); GLUCOSE 151 mg/dL (70-99); POTASSIUM 3.1 mmol/L (3.5-5.1); SODIUM 136 mmol/L (136-145)
[2018-05-16 06:55] LABS: ALBUMIN 3.9 g/dL (3.4-5.0); ALKALINE PHOSPHATASE 55 U/L (46-116); SGOT 29 U/L (15-37); SGPT 30 U/L (30-65); TOTAL PROTEIN 7.8 g/dL (6.4-8.2); TROPONIN-I LEVEL <0.06 ng/mL (<0.06)
[2018-05-16 08:54] VITALS: BP 136/94
--- NOTE | 2018-05-16 10:11 | EKG ---
[place] [address] ELECTROCARDIOGRAM REPORT Name: ANN-MARIE CHANEY Room: [facility]#: [id number] Admission: 05/16/18 Attend Phys: Discharge: 05/16/18 Date of : 55 Report #: [id number] THIS REPORT FOR: //name// [facility] ED Test Date: 2018-05-16 Test Time: 06:05:34 Pat Name: ANN-MARIE CHANEY Department: Room: Gender: M Ultrasonic Cleaner: Lexii BLACKWELL : 1955 Requested By: Cong Doyle Order Number: [id number] MD: Ann-Marie Chairez Measurements Intervals [place] Rate: 99 P: -18 ID: [id number] QRS: 19 QRSD: 105 T: 11 QT: 383 QTc: 492 Interpretive Statements Sinus rhythm Borderline prolonged QT interval Compared to ECG 01/29/2018 23:43:02 Sinus tachycardia no longer present Electronically Signed On 05-16-2018 10:11:36 CDT by Ann-Marie Chairez [email or web address] <ELECTRONICALLY SIGNED> By: Ann-Marie Chairez MD, [facility] 05/16/18 1011 06 06 Ann-Marie Chairez MD, FACC /EPI
== END 2018-05-16 08:58 | disposition home or self-care (01) ==
LOC: M.ERS 05:18
PROVIDERS: Emergency Medicine Emergency Medical Services
DX: R06.6 Hiccough (principal); F41.0 Panic disorder [episodic paroxysmal anxiety]; F32.9 Major depressive disorder, single episode, unspecified; M19.90 Unspecified osteoarthritis, unspecified site; I10 Essential (primary) hypertension; E78.5 Hyperlipidemia, unspecified; G47.30 Sleep apnea, unspecified; K21.9 Gastro-esophageal reflux disease without esophagitis; Z88.5 Allergy status to narcotic agent; Z88.8 Allergy status to other drugs, medicaments and biological substances; Z87.442 Personal history of urinary calculi; Z88.6 Allergy status to analgesic agent; Z85.038 Personal history of other malignant neoplasm of large intestine

== ENCOUNTER → 2019-09-14 | Outpatient (CLI) | payer MEDICARE ==
[2019-09-14 11:03] LABS: ABSOLUTE BASOPHILS 0.1 thou/uL (0.0-0.2); ABSOLUTE EOSINOPHILS 0.1 thou/uL (0.0-0.7); ABSOLUTE LYMPHOCYTES 2.6 thou/uL (0.8-5.3); ABSOLUTE MONOCYTES 0.6 thou/uL (0.0-1.2); ABSOLUTE NEUTROPHILS 3.6 thou/uL (1.6-8.1); BASOPHILS 0.8 %; EOSINOPHILS 1.7 %; HEMATOCRIT 41.1 % (42.0-52.0); HEMOGLOBIN 13.7 gm/dL (14.0-18.0); LYMPHOCYTES 37.5 %; MCH 29.1 pg (26.0-34.0); MCHC 33.4 g/dL (28.0-37.0); MONOCYTES 8.5 %; MPV 8.6 fl. (7.2-11.1); NUCLEATED RBCS 0 /100WBC; PLATELET COUNT* 204 thou/uL (150-400); POLYS 51.5 %; RBC 4.72 mil/uL (4.50-6.00); RDW-CV 13.7 % (10.5-14.5); WBC 7.1 thou/uL (4.0-11.0)
[2019-09-14 11:14] LABS: POTASSIUM 5.1 mmol/L (3.5-5.1)
[2019-09-14 11:18] LABS: ALBUMIN 3.6 g/dL (3.4-5.0); TOTAL BILIRUBIN 0.5 mg/dL (<0.1-1.0); TOTAL PROTEIN 7.8 g/dL (6.4-8.2)
[2019-09-14 12:10] LABS: ESR (SEDRATE) 18 mm/hr (0-20)
== END ==
LOC: M.WC 09-07 10:00
PROVIDERS: Family Medicine
DX: L89.893 Pressure ulcer of other site, stage 3 (principal); L97.512 Non-pressure chronic ulcer of other part of right foot with fat layer exposed; L84 Corns and callosities; I10 Essential (primary) hypertension; F32.9 Major depressive disorder, single episode, unspecified; F41.9 Anxiety disorder, unspecified; Z87.891 Personal history of nicotine dependence; Z85.038 Personal history of other malignant neoplasm of large intestine; Z79.899 Other long term (current) drug therapy

== ENCOUNTER → 2019-09-21 | Outpatient (CLI) | payer MEDICARE | LOC: M.WC 02:23 | DX: L89.893 Pressure ulcer of other site, stage 3 (principal); L97.512 Non-pressure chronic ulcer of other part of right foot with fat layer exposed; L84 Corns and callosities; I10 Essential (primary) hypertension; F41.9 Anxiety disorder, unspecified; F32.9 Major depressive disorder, single episode, unspecified; Z85.038 Personal history of other malignant neoplasm of large intestine; Z87.891 Personal history of nicotine dependence ==

== ENCOUNTER 2019-12-18 14:08 | Emergency (ER) | payer MEDICARE ==
[~2019-12-18] VITALS: Ht 175.3 cm; Wt 65.8 kg
[2019-12-18] MEDS ORDERED: OXYCONTIN15 MG PO (14:21)
[2019-12-18] MEDS ORDERED: MS CONTIN 30 MG30 M1 PO (14:21)
[2019-12-18 14:50] LABS: ABSOLUTE BASOPHILS 0.1 thou/uL (0.0-0.2); ABSOLUTE LYMPHOCYTES 1.7 thou/uL (0.8-5.3); ABSOLUTE MONOCYTES 0.6 thou/uL (0.0-1.2); BASOPHILS 0.8 %; EOSINOPHILS 0.3 %; HEMATOCRIT 42.1 % (42.0-52.0); HEMOGLOBIN 14.1 gm/dL (14.0-18.0); LYMPHOCYTES 23.5 %; MCH 28.6 pg (26.0-34.0); MCHC 33.4 g/dL (28.0-37.0); MCV 85.7 fL (80.0-100.0); MONOCYTES 7.7 %; NUCLEATED RBCS 0 /100WBC; PLATELET COUNT* 179 thou/uL (150-400); POLYS 67.7 %; RBC 4.91 mil/uL (4.50-6.00); RDW-CV 13.8 % (10.5-14.5); WBC 7.4 thou/uL (4.0-11.0)
[2019-12-18 15:10] LABS: CALCIUM 8.8 mg/dL (8.5-10.1); CREATININE 1.1 mg/dL (0.6-1.3); POTASSIUM 3.2 mmol/L (3.5-5.1)
[2019-12-18 15:15] LABS: ALBUMIN 3.3 g/dL (3.4-5.0); TOTAL BILIRUBIN 0.6 mg/dL (<0.1-1.0); TOTAL PROTEIN 7.2 g/dL (6.4-8.2)
[2019-12-18 15:53] LABS: URINE BILIRUBIN NEGATIVE (Negative); URINE BLOOD NEGATIVE (Negative); URINE CLARITY CLEAR; URINE COLOR YELLOW; URINE GLUCOSE-RANDOM NEGATIVE (Negative); URINE KETONES NEGATIVE (Negative); URINE LEUKOCYTES-REFLEX NEGATIVE (Negative); URINE NITRITE-REFLEX NEGATIVE (Negative); URINE PROTEIN NEGATIVE (Negative); URINE SPECIFIC GRAVITY <= 1.005 (1.005-1.030); URINE UROBILINOGEN 0.2 E.U./dl (0.2-1.0)
[2019-12-18 16:43] LABS: APTT 29.4 Seconds (25.0-31.3); INR 1.1; PROTIME 11.4 Seconds (9.20-11.50)
[2019-12-18 18:09] VITALS: BP 121/71
--- NOTE | 2019-12-19 16:21 | EKG ---
[place] [address] ELECTROCARDIOGRAM REPORT Name: ANN-MARIE CHANEY Room: [facility]#: [id number] Admission: 12/18/19 Attend Phys: Discharge: 12/18/19 Date of : 55 Date of Service: 12/18/19 1434 Report #: [id number] THIS REPORT FOR: //name// [facility] ED Test Date: 2019-12-18 Test Time: 14:34:09 Pat Name: ANN-MARIE CHANEY Department: Room: Gender: Knowledge Engineer: [place] : 1955 Requested By: Rod Castañeda Order Number: [id number] MD: Jori Bills Measurements Intervals [place] Rate: 83 P: 11 AK: 167 QRS: 59 QRSD: 97 T: 44 QT: 372 QTc: 437 Interpretive Statements Sinus rhythm Artifact in lead(s) III,aVL,aVF,V1,V3,V5 and baseline wander in lead(s) V4 Compared to ECG 05/16/2018 06:05:34 no significant change Electronically Signed On 12-19-2019 16:19:09 CDT by Jori Bills [email or web address] <ELECTRONICALLY SIGNED> By: Jori Bills MD, [facility] 12/19/19 1619 1434 1434 Jori Bills MD, FAC /EPI
== END 2019-12-18 18:10 | disposition home or self-care (01) ==
LOC: M.ERS 14:08
PROVIDERS: Personal Emergency Response Attendant; Physician Assistant
DX: C18.9 Malignant neoplasm of colon, unspecified (principal); I10 Essential (primary) hypertension; E78.5 Hyperlipidemia, unspecified; M19.90 Unspecified osteoarthritis, unspecified site; G47.30 Sleep apnea, unspecified; F32.9 Major depressive disorder, single episode, unspecified; F41.9 Anxiety disorder, unspecified; Z90.49 Acquired absence of other specified parts of digestive tract; Z87.442 Personal history of urinary calculi; Z98.52 Vasectomy status; Z88.6 Allergy status to analgesic agent; Z88.8 Allergy status to other drugs, medicaments and biological substances

== ENCOUNTER 2020-06-18 23:56 | Emergency (ER) | payer MEDICARE ==
[~2020-06-18] VITALS: Ht 175.3 cm; Wt 56.8 kg
[~2020-06-18 23:56] MED LIST changes: +MS CONTIN 30 MG30 M1 PO; +OXYCONTIN15 MG PO
[2020-06-19 00:31] LABS: ABSOLUTE LYMPHOCYTES 1.2 thou/uL (0.8-5.3); ABSOLUTE MONOCYTES 0.5 thou/uL (0.0-1.2); ABSOLUTE NEUTROPHILS 6.1 thou/uL (1.6-8.1); BASOPHILS 0.6 %; EOSINOPHILS 0.4 %; HEMATOCRIT 34.8 % (42.0-52.0); HEMOGLOBIN 11.2 gm/dL (14.0-18.0); MCH 26.8 pg (26.0-34.0); MCHC 32.1 g/dL (28.0-37.0); MCV 83.4 fL (80.0-100.0); NUCLEATED RBCS 0 /100WBC; PLATELET COUNT* 251 thou/uL (150-400); RBC 4.17 mil/uL (4.50-6.00); RDW-CV 16.3 % (10.5-14.5); WBC 7.8 thou/uL (4.0-11.0)
[2020-06-19 00:38] LABS: CREATININE 0.8 mg/dL (0.6-1.3); POTASSIUM 3.7 mmol/L (3.5-5.1)
[2020-06-19 00:43] LABS: ALBUMIN 2.2 g/dL (3.4-5.0); TOTAL BILIRUBIN 0.3 mg/dL (<0.1-1.0); TOTAL PROTEIN 6.1 g/dL (6.4-8.2)
[2020-06-19] MEDS ORDERED: DURAGESIC1 EAC2 TRANSDERM (03:32)
[2020-06-19 04:35] LABS: URINE BILIRUBIN NEGATIVE (Negative); URINE BLOOD NEGATIVE (Negative); URINE CLARITY CLEAR; URINE COLOR DARK YELLOW; URINE GLUCOSE-RANDOM NEGATIVE (Negative); URINE KETONES TRACE (Negative); URINE LEUKOCYTES-REFLEX NEGATIVE (Negative); URINE NITRITE-REFLEX NEGATIVE (Negative); URINE PROTEIN TRACE (Negative); URINE SPECIFIC GRAVITY 1.025 (1.005-1.030); URINE UROBILINOGEN 0.2 E.U./dl (0.2-1.0)
[2020-06-19 07:13] LABS: AMP/METHAMP Negative (Negative); BARBITURATES Negative (Negative); BENZODIAZEPINES POSITIVE (Negative); COCAINE Negative (Negative); METHADONE Negative (Negative); OPIATES POSITIVE (Negative); PCP Negative (Negative); THC POSITIVE (Negative)
[2020-06-19 07:15] LABS: SALICYLATE < 2.8 mg/dL (2.8-20.0)
[2020-06-19 07:16] LABS: ACETAMINOPHEN < 2 ug/mL (10-30); ALCOHOL < 10 mg/dL (<10)
--- NOTE | 2020-06-19 11:18 | NUR ---
Recved call from [facility] about assistance with Hospice. DPDAMIAN Dinah Alex [phone]. Recved report from RN that no preference on Hospice. Called Dtr x2 with no answer. Notified RN of this. Called [facility] [phone] provided pt information and that pt had been in [facility] recently but services changed per Dtr so he was brought to her home. It was reported she is concerned about him not getting his meds and that she needs assistance with care. Mariah Jb stated she would call dtr at the end of this call and arrange to go evaluate care needed at the home today. Notified Cynthia WILLIS. Left VM on Dinah's phone with LEVAR garcia cell #.
[2020-06-19 13:42] VITALS: BP 126/82
== END 2020-06-19 13:42 | disposition home or self-care (01) ==
LOC: M.ERS 23:56
PROVIDERS: Personal Emergency Response Attendant
DX: C79.9 Secondary malignant neoplasm of unspecified site (principal); C18.9 Malignant neoplasm of colon, unspecified; R44.3 Hallucinations, unspecified; Z20.828 Contact with and (suspected) exposure to other viral communicable diseases; F41.0 Panic disorder [episodic paroxysmal anxiety]; F32.9 Major depressive disorder, single episode, unspecified; Z98.890 Other specified postprocedural states; Z90.89 Acquired absence of other organs; K21.9 Gastro-esophageal reflux disease without esophagitis; M19.90 Unspecified osteoarthritis, unspecified site; I10 Essential (primary) hypertension; E78.5 Hyperlipidemia, unspecified; Z87.442 Personal history of urinary calculi; Z88.8 Allergy status to other drugs, medicaments and biological substances; Z88.5 Allergy status to narcotic agent; Z79.899 Other long term (current) drug therapy